=== PATIENT | female | born 1955 | race African-American/Black ===

== ENCOUNTER 2019-10-20 22:41 | Inpatient (IN) | payer OTHER, MEDICAID ==
[~2019-10-20] VITALS: Ht 165.1 cm; Wt 86.6 kg
[2019-10-21 00:34] LABS: CLARITY URINE CLEAR (CLEAR); COLOR URINE YELLOW (YELLOW); KETONES URINE NEGATIVE (NEGATIVE); LEUKOCYTE ESTERASE URINE NEGATIVE (NEGATIVE); NITRITE URINE NEGATIVE (NEGATIVE); OCCULT BLOOD URINE NEGATIVE (NEGATIVE); PH URINE 6.5 (4.5-8.0); PROTEIN URINE NEGATIVE (NEGATIVE); SPECIFIC GRAVITY URINE 1.005 (1.005-1.030); UROBILINOGEN URINE 0.2 E.U./dL (0.2-1.0)
[2019-10-21 00:53] LABS: *AMPHETAMINES SCREEN URINE NEGATIVE (NEGATIVE); *BARBITURATES SCREEN URINE NEGATIVE (NEGATIVE); *BENZODIAZEPINES SCREEN URINE NEGATIVE (NEGATIVE); *COCAINE SCREEN URINE NEGATIVE (NEGATIVE); CANNABINOID URINE SCREEN NEGATIVE (NEGATIVE); OPIATES URINE SCREEN NEGATIVE (NEGATIVE); PHENCYCLIDINE URINE SCREEN NEGATIVE (NEGATIVE)
[2019-10-21 00:57] LABS: METHADONE URINE SCREEN NEGATIVE (NEGATIVE)
[2019-10-21 01:08] LABS: BASOPHILS % 0.7 % (0.0-2.0); EOSINOPHILS % 1.2 % (0.0-5.0); HEMATOCRIT. 33.4 % (36.0-48.0); HEMOGLOBIN. 10.9 g/dL (12.0-16.0); LYMPHOCYTES % 24.6 % (20.0-50.0); MEAN CORPUSCULAR HEMOGLOBIN 27.3 pg (28.0-32.0); MONOCYTES % 7.8 % (2.0-8.0); NEUTROPHILS % 65.7 % (40.0-76.0); PLATELET 382 x1000/uL (130-400); RED BLOOD CELL COUNT 3.98 mill/uL (4.2-5.4); RED CELL DISTRIBUTION WIDTH 13.9 % (11.6-14.6)
[2019-10-21 01:13] LABS: CHLORIDE 106 mEq/L (98-107)
[2019-10-21 01:17] LABS: ETHANOL BLOOD < 10 mg/dL
[2019-10-21 09:50] VITALS: BP 160/65
[2019-10-21] MEDS ORDERED: ONDANSETRON HCL 4MG/2ML INJ IV PRN (10:15)
[2019-10-21] MEDS ORDERED: MECLIZINE 25MG TABLET PO PRN (10:15)
[2019-10-21] MEDS ORDERED: CLONIDINE 0.1MG TABLET PO PRN (10:15)
[2019-10-21] MEDS ORDERED: ACETAMINOPHEN 325MG TABLET PO PRN (10:15)
[2019-10-21 12:00] VITALS: BP 160/69
[2019-10-21] MEDS ORDERED: POTASSIUM CHLORIDE 20MEQ TABLET SR PO NR (12:00)
[2019-10-21] MEDS: ASPIRIN 81MG EC TABLET PO SCH (13:34)
[2019-10-21] MEDS: DOXYCYCLINE HYCLATE 100MG CAPSULE PO SCH ×2 (13:34→19:10)
[2019-10-21] MEDS: LEVOFLOXACIN 500MG TABLET PO SCH (13:35)
[2019-10-21 16:00] VITALS: BP 154/57
[2019-10-21] MEDS ORDERED: ZOLP10TA2 PO (19:22)
[2019-10-21] MEDS ORDERED: LISI10TA5 MT (19:22)
[2019-10-21] MEDS ORDERED: NAPR-679 PO (19:44)
[2019-10-21] MEDS ORDERED: CIPR-263 PO (19:44)
[2019-10-21] MEDS ORDERED: DOXY150T5 PO (19:44)
[2019-10-21 20:00] VITALS: BP 147/71
[2019-10-21] MEDS: HYDROCODONE/ACETAMINOPHEN 5/325MG TABLET PO PRN (20:51)
[2019-10-21] MEDS: AMLODIPINE 2.5MG TABLET PO SCH (20:51)
[2019-10-22] VITALS: BP 136/71
[2019-10-22] MEDS: HYDROCODONE/ACETAMINOPHEN 5/325MG TABLET PO PRN ×2 (02:51→10:19)
[2019-10-22 04:00] VITALS: BP 136/72
[2019-10-22 06:34] LABS: CHLORIDE 107 mEq/L (98-107)
[2019-10-22 06:47] LABS: BASOPHILS % 0.6 % (0.0-2.0); EOSINOPHILS % 1.9 % (0.0-5.0); HEMATOCRIT. 34.1 % (36.0-48.0); HEMOGLOBIN. 11.1 g/dL (12.0-16.0); LYMPHOCYTES % 24.1 % (20.0-50.0); MEAN CORPUSCULAR HEMOGLOBIN 27.4 pg (28.0-32.0); MEAN CORPUSCULAR VOLUME 84.1 fL (81.0-99.0); MEAN PLATELET VOLUME 7.9 fl (7.4-10.4); NEUTROPHILS % 60.4 % (40.0-76.0); PLATELET 318 x1000/uL (130-400); RED BLOOD CELL COUNT 4.05 mill/uL (4.2-5.4); RED CELL DISTRIBUTION WIDTH 14.3 % (11.6-14.6)
[2019-10-22 08:00] VITALS: BP 131/45
[2019-10-22] MEDS: AMLODIPINE 2.5MG TABLET PO SCH (08:05)
[2019-10-22] MEDS: ASPIRIN 81MG EC TABLET PO SCH (08:05)
[2019-10-22] MEDS: DOXYCYCLINE HYCLATE 100MG CAPSULE PO SCH (08:05)
[2019-10-22] MEDS: LEVOFLOXACIN 500MG TABLET PO SCH (10:19)
[2019-10-22 11:20] VITALS: BP 134/74
[2019-10-22 16:00] VITALS: BP 133/71
[2019-10-22 16:45] VITALS: BP 123/73
== END 2019-10-22 17:14 | disposition home or self-care (01) | DRG 48 ==
LOC: ER 22:41 → EDBEDREQ 10-21 01:44 → EDBEDREQTM 10-21 01:44 → 7WST 10-21 02:19 → EDBEDREQ 10-21 02:21 → ENRESERV 10-21 07:18 → 6WST 10-22 11:06
PROVIDERS: ADMIT Internal Medicine; ATTEND Internal Medicine
PROC: 5A09357 Assistance with Respiratory Ventilation, Less than 24 Consecutive Hours, Continuous Positive Airway Pressure (ICD-10-PCS; principal; 2019-10-21)
DX: G90.8 Other disorders of autonomic nervous system (principal); E43 Unspecified severe protein-calorie malnutrition; I11.9 Hypertensive heart disease without heart failure; D64.9 Anemia, unspecified; E66.9 Obesity, unspecified; E87.6 Hypokalemia; L97.519 Non-pressure chronic ulcer of other part of right foot with unspecified severity; Z79.82 Long term (current) use of aspirin; Z82.49 Family history of ischemic heart disease and other diseases of the circulatory system; Z87.891 Personal history of nicotine dependence; Z68.31 Body mass index [BMI] 31.0-31.9, adult; Z71.3 Dietary counseling and surveillance
CPT/HCPCS: 36415; 71045; 80048; 80053; 80061; 80305; 80320; 81003; 83880; 84443; 84484; 85025; 93005; 93306; 93970; 97162; 99285; G0480

== ENCOUNTER 2021-12-12 08:42 | Emergency (ER) | payer MEDICAID, OTHER ==
[~2021-12-12] VITALS: Ht 167.6 cm; Wt 100.0 kg
[~2021-12-12 08:42] MED LIST: CIPR-263 PO; DOXY150T5 PO; LISI10TA26 MT; NAPR-679 PO; ZOLP10TA2 PO
[2021-12-12] MEDS ORDERED: MECLIZINE 25MG TABLET PO ONE (09:00)
[2021-12-12 09:41] LABS: BASOPHILS % 0.4 % (0.0-2.0); EOSINOPHILS % 1.7 % (0.0-5.0); HEMATOCRIT. 37.7 % (36.0-48.0); HEMOGLOBIN. 12.1 g/dL (12.0-16.0); LYMPHOCYTES % 24.4 % (20.0-50.0); MEAN CORPUSCULAR HEMOGLOBIN 27.1 pg (28.0-32.0); MEAN CORPUSCULAR VOLUME 84.3 fL (81.0-99.0); MEAN PLATELET VOLUME 7.6 fl (7.4-10.4); MONOCYTES % 6.7 % (2.0-8.0); NEUTROPHILS % 66.8 % (40.0-76.0); PLATELET 374 x1000/uL (130-400); RED BLOOD CELL COUNT 4.47 mill/uL (4.2-5.4); RED CELL DISTRIBUTION WIDTH 14.3 % (11.6-14.6)
[2021-12-12 09:47] LABS: CHLORIDE 106 mEq/L (98-107)
[2021-12-12] MEDS ORDERED: MECL-159 MT (11:51)
[2021-12-12] MEDS ORDERED: AMOX-424 MT (12:09)
[2021-12-12] MEDS ORDERED: AMOXICILLIN/POTASSIUM CLAVULANATE 875/125MG TAB PO ONE (12:15)
[2021-12-12] MEDS ORDERED: LORAZEPAM 2MG/ML CPJ IV ONE (12:15)
[2021-12-12] MEDS ORDERED: IOHEXOL-350 100 ML BOTTLE ONE ×2 (12:45→12:51)
[2021-12-12 13:04] VITALS: BP 144/83
== END 2021-12-12 13:08 | disposition home or self-care (01) ==
LOC: ER 09:15
DX: R42 Dizziness and giddiness (principal); I10 Essential (primary) hypertension; Z79.899 Other long term (current) drug therapy
CPT/HCPCS: 36415; 70496; 70498; 71045; 80053; 83880; 84484; 85025; 93005; 96374; 99285; J2060; Q9967; J8597